=== PATIENT | male | born 1980 | race Caucasian/White ===

== ENCOUNTER 2018-10-07 11:02 | Emergency (ER) | payer OTHER, SELFPAY ==
[2018-10-07 11:04] VITALS: BP 158/95; PULSE 113; RESP 24; TEMP 36.6; O2SAT 98
--- NOTE | 2018-10-07 11:15 | ED.PSYCH ---
HPI - Psych General Chief Complaint: Psychiatric Symptoms Stated Complaint: Psych Time Seen by Provider: 10/07/18 11:04 Source: patient and family Mode of arrival: ambulatory Limitations: no limitations History of Present Illness HPI Narrative: Patient is a 38-year-old male with history of bipolar presenting with his psychiatrist is in acute meagan. He says he has been feeling the meagan come on for about the last 3 weeks or so. He presented to his psychiatrist's office today, but was promptly brought to the emergency department for further evaluation. He does not want to go to [facility] but will go if that is what everyone wants him to do. He he slept for about 5 hours last night. He has made comments to his psychiatrist about grandiose ideas. He denies any suicidal or homicidal ideations. MD complaint: altered mental status Related Data Home Medications Medication Instructions Recorded Confirmed bupropion HCl [Wellbutrin SR] #0 12/11/16 lamotrigine [Lamictal] #0 12/11/16 Allergies Allergy/AdvReac Type Severity Reaction Status Date / Time No Known Drug Allergies Allergy Verified 10/07/18 11:29 Review of Systems Review of Systems ROS Unobtainable: Unobtainable due to mental condition [facility] Medical History Bipolar 1 disorder (Acute) Social History Smoking Status: Current every day smoker Social History Smoking Status: Current every day smoker Exam Initial Vital Signs Initial Vital Signs: Vital Signs Temperature 98 F 10/07/18 11:04 Pulse Rate 113 H 10/07/18 11:04 Respiratory Rate 24 10/07/18 11:04 Blood Pressure 158/95 H 10/07/18 11:04 Pulse Oximetry 98 10/07/18 11:04 GENERAL: [Well-appearing, well-nourished] and in [no acute] distress. HEENT: Head atraumatic,EOMI, pupils reactive, face symmetric, [moist] mucous membranes CARDIOVASCULAR: Regular rate and rhythm without murmurs, rubs or gallops. RESPIRATORY: Breath sounds equal bilaterally, no wheezes rales or rhonchi. ABDOMEN: Soft, nontender. Normoactive bowel sounds all 4 quadrants. No guarding or rebound. EXTREMITIES: Normal range of motion, no clubbing or edema. Neurovascularly intact NEUROLOGICAL: Alert and oriented x4 SKIN: Warm, dry, no laceration, no petechiae, no rashes or lesions. Psych Appearance: grossly normal Speech and Movement: pressured speech Mood: manic mood Affect: irritable affect Attitude: avoids eye contact Thought Process: flight of ideas, illogical, impoverished and loose association Thought Content: no homicidality and suicidality Judgment: poor Course Orders Ordered: Discontinued Medications Haloperidol (Haldol) 5 mg IM NOW ONE Stop: 10/07/18 11:29 Last Admin: 10/07/18 11:56 Dose: 5 mg Vital Signs - 8 hr 10/07/18 11:04 Temperature 98 F Pulse Rate 113 H Respiratory Rate 24 Blood Pressure 158/95 H Pulse Oximetry 98 MDM - Psych Lab Data Result diagrams: 10/07/18 11:58 10/07/18 11:58 Lab Results 10/07/18 10/07/18 10/07/18 Range/Units 11:39 11:58 11:58 WBC 10.6 (4.5-11.0) X10^3/uL RBC 4.96 (4.5-5.9) X10^6/uL Hgb 14.3 (13.5-17.5) g/dL Hct 43.1 (41-53) % MCV 86.9 (80-100) fL MCH 28.8 (26-34) PG MCHC 33.1 (30-36) % RDW 12.6 (11.6-14.8) % Plt Count 362 (150-400) X10^3/uL Neut % (Auto) 72.4 (50-75) % Lymph % (Auto) 19.4 L (25-40) % Ogle % (Auto) 7.1 (3-14) % Eos % (Auto) 0.7 L (2-4) % Baso % (Auto) 0.4 (0-2) % Neut # (Auto) 7700 H (2196-0135) /uL Lymph # (Auto) 2100 (0599-0611) /uL Ogle # (Auto) 800 (0-900) /uL Eos # (Auto) 100 (0-450) /uL Baso # (Auto) 0 (0-100) /uL Sodium (137-145) mmol/L Potassium (3.4-5.1) mmol/L Chloride (98-107) mmol/L Carbon Dioxide (22-32) mmol/L BUN (9-20) mg/dL Creatinine (0.66-1.25) mg/dL Estimated GFR (>60) mL/min BUN/Creatinine Ratio (6-22) Glucose (70-100) mg/dL Calcium (8.4-10.2) mg/dL Total Bilirubin (0.2-1.3) mg/dL AST (17-59) IU/L ALT (21-72) IU/L Alkaline Phosphatase (38-126) U/L Total Protein (6.3-8.2) g/dL Albumin (3.5-5.0) g/dL Globulin (1.7-4.1) g/dL Albumin/Globulin Ratio (1.0-2.8) TSH (0.47-4.68) uIU/mL Urine Opiates Screen Negative (Negative) Ur Oxycodone Screen Negative (Negative) Urine Methadone Screen Negative (Negative) Ur Barbiturates Screen Negative (Negative) U Tricyclic Antidepress Positive H (Negative) Ur Phencyclidine Scrn Positive H (Negative) Ur Amphetamines Screen Negative (Negative) U Methamphetamines Scrn Negative (Negative) Ur MDMA Scrn (Ecstasy) Negative (Negative) U Benzodiazepines Scrn Negative (Negative) [place] < 0.2 L (0.6-1.2) mmol/L Urine Cocaine Screen Negative (Negative) U Marijuana (THC) Screen Positive H (Negative) Ethyl Alcohol ( - 10) mg/dL 10/07/18 10/07/18 Range/Units 11:58 11:58 WBC (4.5-11.0) X10^3/uL RBC (4.5-5.9) X10^6/uL Hgb (13.5-17.5) g/dL Hct (41-53) % MCV (80-100) fL MCH (26-34) PG MCHC (30-36) % RDW (11.6-14.8) % Plt Count (150-400) X10^3/uL Neut % (Auto) (50-75) % Lymph % (Auto) (25-40) % Ogle % (Auto) (3-14) % Eos % (Auto) (2-4) % Baso % (Auto) (0-2) % Neut # (Auto) (3980-8290) /uL Lymph # (Auto) (4904-7519) /uL Ogle # (Auto) (0-900) /uL Eos # (Auto) (0-450) /uL Baso # (Auto) (0-100) /uL Sodium 140 (137-145) mmol/L Potassium 4.3 (3.4-5.1) mmol/L Chloride 103 (98-107) mmol/L Carbon Dioxide 27 (22-32) mmol/L BUN 13 (9-20) mg/dL Creatinine 1.00 (0.66-1.25) mg/dL Estimated GFR > 60.0 (>60) mL/min BUN/Creatinine Ratio 13.0 (6-22) Glucose 119 H (70-100) mg/dL Calcium 9.4 (8.4-10.2) mg/dL Total Bilirubin 0.3 (0.2-1.3) mg/dL AST 26 (17-59) IU/L ALT 21 (21-72) IU/L Alkaline Phosphatase 81 (38-126) U/L Total Protein 7.4 (6.3-8.2) g/dL Albumin 4.5 (3.5-5.0) g/dL Globulin 2.9 (1.7-4.1) g/dL Albumin/Globulin Ratio 1.6 (1.0-2.8) TSH 0.90 (0.47-4.68) uIU/mL Urine Opiates Screen (Negative) Ur Oxycodone Screen (Negative) Urine Methadone Screen (Negative) Ur Barbiturates Screen (Negative) U Tricyclic Antidepress (Negative) Ur Phencyclidine Scrn (Negative) Ur Amphetamines Screen (Negative) U Methamphetamines Scrn (Negative) Ur MDMA Scrn (Ecstasy) (Negative) U Benzodiazepines Scrn (Negative) [place] (0.6-1.2) mmol/L Urine Cocaine Screen (Negative) U Marijuana (THC) Screen (Negative) Ethyl Alcohol < 10 ( - 10) mg/dL Urine Dip Bedside Urine Glucose Negative Bedside Urine Bilirubin + 1 Bedside Urine Ketone +/- 5 Urine Specific [place] 1.030 Bedside Urine Occult Blood - Negative Bedside Urine pH 6.0 Bedside Urine Protein +/- 15 Bedside Urine Urobilinogen - Negative Bedside Urine Nitrite - Negative Bedside Urine Leukocytes - Negative Esterase MDM Narrative Medical decision making narrative: In my opinion patient is gravely disabled unable to care for himself and has extremely poor judgment. He has been manic for about a month and has been escalating. He has grandiose ideas it is my opinion that he needs hospitalized. At this time he is willing to go. He is not requiring restraint he has been cooperative. He is asked bleeding in the emergency department and required Haldol. This seems to have calmed him. Social work on case. Patient accepted to [facility] [place] Discharge Plan Departure Patient Disposition: Xfer Psychiatric Hosp Clinical Impression: Meagan Discharge Date/Time: 10/07/18 19:33 Interventions: ED Discharge Assessment Last Done: 10/07/18 19:32
--- NOTE | 2018-10-07 11:34 | ED_ITS ---
HPI - Psych General Chief Complaint: Psychiatric Symptoms Stated Complaint: Psych Time Seen by Provider: 10/07/18 11:04 Source: patient and family Mode of arrival: ambulatory Limitations: no limitations History of Present Illness HPI Narrative: Patient is a 38-year-old male with history of bipolar presenting with his psychiatrist is in acute meagan. He says he has been feeling the meagan come on for about the last 3 weeks or so. He presented to his psychiatrist's office today, but was promptly brought to the emergency department for further evaluation. He does not want to go to [facility] but will go if that is what everyone wants him to do. He he slept for about 5 hours last night. He has made comments to his psychiatrist about grandiose ideas. He denies any suicidal or homicidal ideations. MD complaint: altered mental status Related Data Home Medications Medication Instructions Recorded Confirmed bupropion HCl [Wellbutrin SR] #0 12/11/16 lamotrigine [Lamictal] #0 12/11/16 Allergies Allergy/AdvReac Type Severity Reaction Status Date / Time No Known Drug Allergies Allergy Verified 10/07/18 11:29 Review of Systems Review of Systems ROS Unobtainable: Unobtainable due to mental condition [facility] Medical History Bipolar 1 disorder (Acute) Social History Smoking Status: Current every day smoker Social History Smoking Status: Current every day smoker Exam Initial Vital Signs Initial Vital Signs: Vital Signs Temperature 98 F 10/07/18 11:04 Pulse Rate 113 H 10/07/18 11:04 Respiratory Rate 24 10/07/18 11:04 Blood Pressure 158/95 H 10/07/18 11:04 Pulse Oximetry 98 10/07/18 11:04 GENERAL: [Well-appearing, well-nourished] and in [no acute] distress. HEENT: Head atraumatic,EOMI, pupils reactive, face symmetric, [moist] mucous mem branes CARDIOVASCULAR: Regular rate and rhythm without murmurs, rubs or gallops. RESPIRATORY: Breath sounds equal bilaterally, no wheezes rales or rhonchi. ABDOMEN: Soft, nontender. Normoactive bowel sounds all 4 quadrants. No guarding or rebound. EXTREMITIES: Normal range of motion, no clubbing or edema. Neurovascularly intact NEUROLOGICAL: Alert and oriented x4 SKIN: Warm, dry, no laceration, no petechiae, no rashes or lesions. Psych Appearance: grossly normal Speech and Movement: pressured speech Mood: manic mood Affect: irritable affect Attitude: avoids eye contact Thought Process: flight of ideas, illogical, impoverished and loose association Thought Content: no homicidality and suicidality Judgment: poor Course Orders Ordered: Discontinued Medications Haloperidol (Haldol) 5 mg IM NOW ONE Stop: 10/07/18 11:29 Last Admin: 10/07/18 11:56 Dose: 5 mg Vital Signs - 8 hr 10/07/18 11:04 Temperature 98 F Pulse Rate 113 H Respiratory Rate 24 Blood Pressure 158/95 H Pulse Oximetry 98 MDM - Psych Lab Data Result diagrams: 10/07/18 11:58 10/07/18 11:58 Lab Results 10/07/18 10/07/18 10/07/18 Range/Units 11:39 11:58 11:58 WBC 10.6 (4.5-11.0) X10^3/uL RBC 4.96 (4.5-5.9) X10^6/uL Hgb 14.3 (13.5-17.5) g/dL Hct 43.1 (41-53) % MCV 86.9 (80-100) fL MCH 28.8 (26-34) PG MCHC 33.1 (30-36) % RDW 12.6 (11.6-14.8) % Plt Count 362 (150-400) X10^3/uL Neut % (Auto) 72.4 (50-75) % Lymph % (Auto) 19.4 L (25-40) % [place]uce % (Auto) 7.1 (3-14) % Eos % (Auto) 0.7 L (2-4) % Baso % (Auto) 0.4 (0-2) % Neut # (Auto) 7700 H (0806-3334) /uL Lymph # (Auto) 2100 (3198-1599) /uL Luce # (Auto) 800 (0-900) /uL Eos # (Auto) 100 (0-450) /uL Baso # (Auto) 0 (0-100) /uL Sodium (137-145) mmol/L Potassium (3.4-5.1) mmol/L Chloride (98-107) mmol/L Carbon Dioxide (22-32) mmol/L BUN (9-20) mg/dL Creatinine (0.66-1.25) mg/dL Estimated GFR (>60) mL/min BUN/Creatinine Ratio (6-22) Glucose (70-100) mg/dL Calcium (8.4-10.2) mg/dL Total Bilirubin (0.2-1.3) mg/dL AST (17-59) IU/L ALT (21-72) IU/L Alkaline Phosphatase (38-126) U/L Total Protein (6.3-8.2) g/dL Albumin (3.5-5.0) g/dL Globulin (1.7-4.1) g/dL Albumin/Globulin Ratio (1.0-2.8) TSH (0.47-4.68) uIU/mL Urine Opiates Screen Negative (Negative) Ur Oxycodone Screen Negative (Negative) Urine Methadone Screen Negative (Negative) Ur Barbiturates Screen Negative (Negative) U Tricyclic Antidepress Positive H (Negative) Ur Phencyclidine Scrn Positive H (Negative) Ur Amphetamines Screen Negative (Negative) U Methamphetamines Scrn Negative (Negative) Ur MDMA Scrn (Ecstasy) Negative (Negative) U Benzodiazepines Scrn Negative (Negative) [place] < 0.2 L (0.6-1.2) mmol/L Urine Cocaine Screen Negative (Negative) U Marijuana (THC) Screen Positive H (Negative) Ethyl Alcohol ( - 10) mg/dL 10/07/18 10/07/18 Range/Units 11:58 11:58 WBC (4.5-11.0) X10^3/uL RBC (4.5-5.9) X10^6/uL Hgb (13.5-17.5) g/dL Hct (41-53) % MCV (80-100) fL MCH (26-34) PG MCHC (30-36) % RDW (11.6-14.8) % Plt Count (150-400) X10^3/uL Neut % (Auto) (50-75) % Lymph % (Auto) (25-40) % [place] % (Auto) (3-14) % Eos % (Auto) (2-4) % Baso % (Auto) (0-2) % Neut # (Auto) (2387-1210) /uL Lymph # (Auto) (7287-6424) /uL [place]uce # (Auto) (0-900) /uL Eos # (Auto) (0-450) /uL Baso # (Auto) (0-100) /uL Sodium 140 (137-145) mmol/L Potassium 4.3 (3.4-5.1) mmol/L Chloride 103 (98-107) mmol/L Carbon Dioxide 27 (22-32) mmol/L BUN 13 (9-20) mg/dL Creatinine 1.00 (0.66-1.25) mg/dL Estimated GFR > 60.0 (>60) mL/min BUN/Creatinine Ratio 13.0 (6-22) Glucose 119 H (70-100) mg/dL Calcium 9.4 (8.4-10.2) mg/dL Total Bilirubin 0.3 (0.2-1.3) mg/dL AST 26 (17-59) IU/L ALT 21 (21-72) IU/L Alkaline Phosphatase 81 (38-126) U/L Total Protein 7.4 (6.3-8.2) g/dL Albumin 4.5 (3.5-5.0) g/dL Globulin 2.9 (1.7-4.1) g/dL Albumin/Globulin Ratio 1.6 (1.0-2.8) TSH 0.90 (0.47-4.68) uIU/mL Urine Opiates Screen (Negative) Ur Oxycodone Screen (Negative) Urine Methadone Screen (Negative) Ur Barbiturates Screen (Negative) U Tricyclic Antidepress (Negative) Ur Phencyclidine Scrn (Negative) Ur Amphetamines Screen (Negative) U Methamphetamines Scrn (Negative) Ur MDMA Scrn (Ecstasy) (Negative) U Benzodiazepines Scrn (Negative) [place] (0.6-1.2) mmol/L Urine Cocaine Screen (Negative) U Marijuana (THC) Screen (Negative) Ethyl Alcohol < 10 ( - 10) mg/dL Urine Dip Bedside Urine Glucose Negative Bedside Urine Bilirubin + 1 Bedside Urine Ketone +/- 5 Urine Specific [place] 1.030 Bedside Urine Occult Blood - Negative Bedside Urine pH 6.0 Bedside Urine Protein +/- 15 Bedside Urine Urobilinogen - Negative Bedside Urine Nitrite - Negative Bedside Urine Leukocytes - Negative Esterase MDM Narrative Medical decision making narrative: In my opinion patient is gravely disabled unable to care for himself and has extremely poor judgment. He has been manic for about a month and has been escalating. He has grandiose ideas it is my opinion that he needs hospitalized. At this time he is willing to go. He is not requiring restraint he has been cooperative. He is asked bleeding in the emergency department and required Haldol. This seems to have calmed him. Social work on case. Patient accepted to [facility] [place] Discharge Plan Departure Patient Disposition: [facility] Clinical Impression: Meagan Discharge Date/Time: 10/07/18 19:33 Interventions: ED Discharge Assessment Last Done: 10/07/18 19:32
--- NOTE | 2018-10-07 11:34 | PC.NURSE ---
denies such accusations, she remains at bs. pt drinking coffee.
--- NOTE | 2018-10-07 11:50 | PC.NURSE ---
Patient was calling out to his while she was walking away. he has talked about running past us to go outside and smoke.
[2018-10-07] MEDS: HALOPERIDOL 5 MG/ML VIAL IM (11:56)
[2018-10-07 12:01] LABS: Urine Amphetamines Negative (Negative); Urine Barbiturates Negative (Negative); Urine Benzodiazepines Negative (Negative); Urine Cocaine Negative (Negative); Urine MDMA Negative (Negative); Urine Methadone Negative (Negative); Urine Methamphetamines Negative (Negative); Urine Morphine/Opi cutoff 2000 Negative (Negative); Urine Phencyclidine Positive (Negative); Urine Tetrahydrocannabinol Positive (Negative); Urine Tricyclic Antidepressant Positive (Negative)
[2018-10-07 12:02] LABS: Urine Oxycodone Negative (Negative)
[2018-10-07 12:16] LABS: Add Manual Diff / Slide Review NO; Basophils Absolute Auto 0 /uL (0-100); Basophils Percent Auto 0.4 % (0-2); Eosinophils Absolute Auto 100 /uL (0-450); Eosinophils Percent Auto 0.7 % (2-4); Hematocrit 43.1 % (41-53); Hemoglobin 14.3 g/dL (13.5-17.5); Lymphocytes Absolute Auto 2100 /uL (1100-4500); Lymphocytes Percent Auto 19.4 % (25-40); Mean Corpuscular HGB Conc 33.1 % (30-36); Mean Corpuscular Hemoglobin 28.8 PG (26-34); Mean Corpuscular Volume 86.9 fL (80-100); Monocytes Absolute Auto 800 /uL (0-900); Monocytes Percent Auto 7.1 % (3-14); Neutrophils Absolute Auto 7700 /uL (1500-7000); Neutrophils Percent Auto 72.4 % (50-75); Platelet Count 362 X10^3/uL (150-400); Red Blood Cell Count 4.96 X10^6/uL (4.5-5.9); Red Cell Distribution Width 12.6 % (11.6-14.8); White Blood Cell Count 10.6 X10^3/uL (4.5-11.0)
[2018-10-07 12:35] LABS: Lithium < 0.2 mmol/L (0.6-1.2)
[2018-10-07 12:36] LABS: Alanine Aminotransferase 21 IU/L (21-72); Albumin 4.5 g/dL (3.5-5.0); Albumin Globulin Ratio 1.6 (1.0-2.8); Alkaline Phosphatase 81 U/L (38-126); Aspartate Aminotransferase 26 IU/L (17-59); Bilirubin Total 0.3 mg/dL (0.2-1.3); Blood Urea Nitrogen 13 mg/dL (9-20); Calcium 9.4 mg/dL (8.4-10.2); Carbon Dioxide 27 mmol/L (22-32); Chloride 103 mmol/L (98-107); Estimated Glomerular Filt Rate > 60.0 mL/min (>60); Ethanol (ETOH) < 10 mg/dL; Globulin 2.9 g/dL (1.7-4.1); Glucose 119 mg/dL (70-100); HEMOLYSIS < 15 (0-50); Potassium 4.3 mmol/L (3.4-5.1); Sodium 140 mmol/L (137-145); Total Protein 7.4 g/dL (6.3-8.2)
--- NOTE | 2018-10-07 13:42 | PC.NURSE ---
morteza here to speak with pt and
[2018-10-07 16:29] VITALS: BP 117/72; PULSE 81; RESP 18; TEMP 36.8; O2SAT 98
--- NOTE | 2018-10-07 16:41 | CM.SWNOTE ---
AUDIO RECORDING ENGINEER Note: (See Crisis Response Assessment for additional details). Patient is a 38yr old male brought in to [facility] today by his spouse/Aura and VERNON/Nj. Family reports that patient was at counselor's today and family were told to bring him to Emergency Department for MH assistance. History: Patient with h/o Bipolar I disorder. Patient reports that he has been off/on medications for Bipolar for many years but actually only diagnosed 3yrs ago. Patient reports both voluntary and involuntary placements in the past. Patient denies current suicidal or homicidal ideation. Support: Patient actively has counselor whom he sees in [place] (Bhargav). Patient has not seen a psychiatrist in unknown amount of time? Patient reports that he gets all psychotropic medications from Dr. Allen. Patient admits to not always taking them. Patient resides with spouse, 5month old, and in-laws in [place]. Patient employed at local restaurant. Family at bedside and appear very engaged. Family requesting help with patient's current manic episode(s). Current: Met with patient explained AUDIO RECORDING ENGINEER role. Patient recently given haldol for restlessness. Patient appears alert and oriented during interview. Patient prefers that his spouse and VERNON stay in the room. Patient admits to long psychiatric history. Patient's speech very fast and repetitive. Patient's appearance is unkept. Patient makes good eye contact during interview but appears to have excessive thoughts i.e. patient's belief is that mushrooms will help his bipolar disorder. Patient very willing to disagree with AUDIO RECORDING ENGINEER on what might be helpful to him moving forward. It was suggested that patient stop all hallucinogens. Patient reports that he is at [facility] because he told his family he would do what they say re: help for bipolar. Patient does not identify that he has substance abuse issue. Patient agreeable to go voluntarily to inpatient MH facility to obtain medication stabilization. Spoke with Dr. Mulligan and she feels strongly that patient is at high risk of harm to himself in current manic state. Patient's brother committed suicide in April 2018. Family in agreement. AUDIO RECORDING ENGINEER placed call to [facility]. They report 1 male bed. Faxed clinical to [facility] for review. No call back as of 4:00pm today. ED staff instructed to check in with [facility] around 6:00pm. If they do not accept. Will need to reassess for placement or secondary plan in AM. Family decided to go home for short amount of time to check on child and take break. Spouse/Crystal would like update if patient goes anywhere this evening # [phone]. VERNON/Nj can be reached at [phone]. Prior to family's departure patient became agitated, specifically with spouse on why he needed to go to facility. Patient reports he would prefer to return home. However, given unstable state this does not appear to be safest plan. However, may belt changer the next 24hrs. Dr. Mulligan aware to dispatch [facility] if behavior becomes worrisome. P: Pending. Would attempt voluntary placement for unstable psychiatric condition. Patient currently at high risk to self/others. MARTINEZ Hilliard
--- NOTE | 2018-10-07 18:13 | PC.NURSE ---
accepted at [facility]/ making transport plans with ambulance. father in law in waiting aware.
[2018-10-07 18:46] VITALS: BP 122/78; PULSE 75; RESP 20; O2SAT 97
--- NOTE | 2018-10-07 18:48 | PC.NURSE ---
We gave the patient a dinner tray, updated his vital signs, and had him sign transfer consent. He was not happy about having to take an ambulance (states we have a broken system), but he did cooperate to sign all paperwork.
== END 2018-10-07 19:33 ==
PROVIDERS: Emergency Provider Emergency Medicine
DX: F30.9 Manic episode, unspecified (principal)
CPT/HCPCS: 36415; 80053; 80178; 80305; 80320; 81003; 84443; 85025; 96372; 99283; 99284; J1630

== ENCOUNTER → 2018-12-04 09:50 | Outpatient (CLI) | payer OTHER, SELFPAY ==
[2018-12-04 12:48] LABS: BUN Creatinine Ratio 13.6 (6-22); Blood Urea Nitrogen 15 mg/dL (9-20); Calcium 10.2 mg/dL (8.4-10.2); Carbon Dioxide 31 mmol/L (22-32); Chloride 100 mmol/L (98-107); Estimated Glomerular Filt Rate > 60.0 mL/min (>60); Glucose 86 mg/dL (70-100); HEMOLYSIS < 15 (0-50); Sodium 139 mmol/L (137-145)
[2018-12-04 12:52] LABS: Lithium < 0.2 mmol/L (0.6-1.2); Potassium 5.6 mmol/L (3.4-5.1)
== END ==
PROVIDERS: Visit Provider Psychiatry & Neurology Psychiatry
DX: F31.13 Bipolar disorder, current episode manic without psychotic features, severe (principal)
CPT/HCPCS: 36415; 80048; 80178

== ENCOUNTER → 2019-01-19 08:44 | Outpatient (CLI) | payer OTHER, SELFPAY ==
[2019-01-19 10:16] LABS: Lithium < 0.2 mmol/L (0.6-1.2)
[2019-01-19 10:18] LABS: Blood Urea Nitrogen 15 mg/dL (9-20); Calcium 9.8 mg/dL (8.4-10.2); Carbon Dioxide 27 mmol/L (22-32); Chloride 102 mmol/L (98-107); Estimated Glomerular Filt Rate > 60.0 mL/min (>60); Glucose 79 mg/dL (70-100); HEMOLYSIS < 15 (0-50); Potassium 4.5 mmol/L (3.4-5.1); Sodium 139 mmol/L (137-145)
[2019-01-22 15:31] LABS: Lamotrigine Lamictal 2.6 mcg/mL (4.0-18.0)
== END ==
PROVIDERS: Visit Provider Psychiatry & Neurology Psychiatry
DX: F31.13 Bipolar disorder, current episode manic without psychotic features, severe (principal)
CPT/HCPCS: 36415; 80048; 80175; 80178

== ENCOUNTER → 2019-02-22 14:49 | Outpatient (CLI) | payer OTHER, SELFPAY ==
[2019-02-22 16:38] LABS: Lithium 0.2 mmol/L (0.6-1.2)
[2019-02-22 16:41] LABS: BUN Creatinine Ratio 12.7 (6-22); Blood Urea Nitrogen 14 mg/dL (9-20); Calcium 10.4 mg/dL (8.4-10.2); Carbon Dioxide 30 mmol/L (22-32); Chloride 99 mmol/L (98-107); Estimated Glomerular Filt Rate > 60.0 mL/min (>60); Glucose 90 mg/dL (70-100); HEMOLYSIS < 15 (0-50); Potassium 5.3 mmol/L (3.4-5.1); Sodium 140 mmol/L (137-145)
== END ==
PROVIDERS: PCP Family Medicine; Visit Provider Psychiatry & Neurology Psychiatry
DX: F31.13 Bipolar disorder, current episode manic without psychotic features, severe (principal)
CPT/HCPCS: 36415; 80048; 80178

== ENCOUNTER → 2019-04-16 15:36 | Outpatient (CLI) | payer OTHER, SELFPAY ==
[2019-04-16 16:45] LABS: Lithium 0.2 mmol/L (0.6-1.2)
[2019-04-16 16:48] LABS: Blood Urea Nitrogen 12 mg/dL (9-20); Calcium 9.8 mg/dL (8.4-10.2); Carbon Dioxide 29 mmol/L (22-32); Chloride 102 mmol/L (98-107); Estimated Glomerular Filt Rate > 60.0 mL/min (>60); Glucose 151 mg/dL (70-100); HEMOLYSIS < 15 (0-50); Potassium 4.3 mmol/L (3.4-5.1); Sodium 140 mmol/L (137-145)
[2019-04-19 09:12] LABS: Lamotrigine Lamictal 2.1 mcg/mL (4.0-18.0)
== END ==
PROVIDERS: PCP Family Medicine; Referring Provider Psychiatry & Neurology Psychiatry; Visit Provider Psychiatry & Neurology Psychiatry
DX: F31.13 Bipolar disorder, current episode manic without psychotic features, severe (principal)
CPT/HCPCS: 36415; 80048; 80175; 80178

== ENCOUNTER → 2019-11-23 14:41 | Outpatient (CLI) | payer OTHER, SELFPAY ==
[2019-11-23 18:52] LABS: BUN Creatinine Ratio 10.3 (6-22); Blood Urea Nitrogen 12 mg/dL (9-20); Calcium 9.7 mg/dL (8.4-10.2); Carbon Dioxide 31 mmol/L (22-32); Chloride 100 mmol/L (98-107); Estimated Glomerular Filt Rate > 60.0 mL/min (>60); Glucose 90 mg/dL (70-100); HEMOLYSIS < 15 (0-50); Potassium 4.7 mmol/L (3.4-5.1); Sodium 138 mmol/L (137-145)
[2019-11-23 19:17] LABS: Lithium 0.2 mmol/L (0.6-1.2)
[2019-11-26 13:09] LABS: Lamotrigine Lamictal 2.7 ug/mL (2.0-20.0)
== END ==
PROVIDERS: PCP Family Medicine; Referring Provider Psychiatry & Neurology Psychiatry; Visit Provider Psychiatry & Neurology Psychiatry
DX: F31.13 Bipolar disorder, current episode manic without psychotic features, severe (principal)
CPT/HCPCS: 36415; 80048; 80175; 80178

== ENCOUNTER → 2020-04-21 11:27 | Outpatient (CLI) | payer OTHER, SELFPAY ==
[2020-04-21 12:35] LABS: Lithium 0.3 mmol/L (0.6-1.2)
== END ==
PROVIDERS: PCP Family Medicine; Referring Provider Family Medicine; Visit Provider Psychiatry & Neurology Psychiatry
DX: F31.13 Bipolar disorder, current episode manic without psychotic features, severe (principal)
CPT/HCPCS: 36415; 80175; 80178

== ENCOUNTER → 2020-05-01 09:41 | Outpatient (CLI) | payer OTHER, SELFPAY ==
[2020-05-01] MEDS: COVID-19 VACC #1, MRNA(MOD) 100 MCG/0.5 ML VIAL IM (09:48)
== END ==
PROVIDERS: PCP Family Medicine; Visit Provider Internal Medicine
DX: Z23 Encounter for immunization (principal)
CPT/HCPCS: 0011A; 91301

== ENCOUNTER → 2020-05-29 08:44 | Outpatient (CLI) | payer OTHER, SELFPAY ==
[2020-05-29] MEDS: COVID-19 VACC #2, MRNA(MOD) 100 MCG/0.5 ML VIAL IM (08:51)
== END ==
PROVIDERS: PCP Family Medicine; Visit Provider Internal Medicine
DX: Z23 Encounter for immunization (principal)
CPT/HCPCS: 0012A; 91301

== ENCOUNTER → 2022-03-15 14:35 | Outpatient (CLI) | payer OTHER, SELFPAY ==
[2022-03-15 15:40] LABS: Alanine Aminotransferase 21 IU/L (<50); Albumin 4.3 g/dL (3.5-5.0); Albumin Globulin Ratio 1.7 (1.0-2.8); Alkaline Phosphatase 80 U/L (38-126); Aspartate Aminotransferase 21 IU/L (17-59); BUN Creatinine Ratio 12.4 (6-22); Bilirubin Total 0.3 mg/dL (0.2-1.3); Blood Urea Nitrogen 13 mg/dL (9-20); Calcium 9.4 mg/dL (8.4-10.2); Carbon Dioxide 27 mmol/L (22-32); Chloride 101 mmol/L (98-107); Estimated Glomerular Filt Rate > 60 mL/min (>60); Globulin 2.6 g/dL (1.7-4.1); Glucose 103 mg/dL (70-100); HEMOLYSIS < 15 (0-50); Lithium 0.3 mmol/L (0.6-1.2); Potassium 4.4 mmol/L (3.4-5.1); Sodium 137 mmol/L (137-145); Total Protein 6.9 g/dL (6.3-8.2)
[2022-03-18 15:15] LABS: Lamotrigine Lamictal 2.3 ug/mL (2.0-20.0)
== END ==
PROVIDERS: PCP Family Medicine; Referring Provider Psychiatry & Neurology Psychiatry; Visit Provider Psychiatry & Neurology Psychiatry
DX: F31.13 Bipolar disorder, current episode manic without psychotic features, severe (principal)
CPT/HCPCS: 36415; 80053; 80175; 80178

== ENCOUNTER → 2023-03-21 09:18 | Outpatient (CLI) | payer OTHER, SELFPAY ==
[2023-03-21 11:49] LABS: Alanine Aminotransferase 27 IU/L (<50); Albumin 4.6 g/dL (3.5-5.0); Albumin Globulin Ratio 1.3 (1.0-2.8); Alkaline Phosphatase 74 U/L (38-126); Aspartate Aminotransferase 25 IU/L (17-59); BUN Creatinine Ratio 11.8 (6-22); Bilirubin Total 0.6 mg/dL (0.2-1.3); Blood Urea Nitrogen 14 mg/dL (9-20); Calcium 10.2 mg/dL (8.4-10.2); Carbon Dioxide 31 mmol/L (22-32); Chloride 103 mmol/L (98-107); Estimated Glomerular Filt Rate > 60 mL/min (>60); Globulin 3.5 g/dL (1.7-4.1); Glucose 101 mg/dL (70-100); HEMOLYSIS < 15 (0-50); Sodium 138 mmol/L (137-145); Total Protein 8.1 g/dL (6.3-8.2)
[2023-03-21 11:50] LABS: Lithium 0.5 mmol/L (0.6-1.2)
[2023-03-24 06:18] LABS: Lamotrigine Lamictal 3.9 ug/mL (2.0-20.0)
== END ==
PROVIDERS: PCP Family Medicine; Referring Provider Psychiatry & Neurology Psychiatry; Visit Provider Psychiatry & Neurology Psychiatry
DX: F31.13 Bipolar disorder, current episode manic without psychotic features, severe (principal); Z79.899 Other long term (current) drug therapy
CPT/HCPCS: 36415; 80053; 80175; 80178

== ENCOUNTER → 2023-07-28 08:56 | Outpatient (CLI) | payer OTHER, SELFPAY ==
[2023-07-28 10:38] LABS: Lithium 0.6 mmol/L (0.6-1.2)
== END ==
PROVIDERS: PCP Family Medicine; Referring Provider Psychiatry & Neurology Psychiatry; Visit Provider Psychiatry & Neurology Psychiatry
DX: F31.13 Bipolar disorder, current episode manic without psychotic features, severe (principal); Z79.899 Other long term (current) drug therapy
CPT/HCPCS: 36415; 80178

== ENCOUNTER → 2024-01-16 10:38 | Outpatient (CLI) | payer OTHER, SELFPAY ==
[2024-01-16 11:51] LABS: Lithium 0.5 mmol/L (0.6-1.2)
== END ==
PROVIDERS: PCP Family Medicine; Referring Provider Psychiatry & Neurology Psychiatry; Visit Provider Psychiatry & Neurology Psychiatry
DX: Z79.899 Other long term (current) drug therapy (principal)
CPT/HCPCS: 36415; 80178

== ENCOUNTER → 2024-10-22 09:21 | Outpatient (CLI) | payer OTHER, SELFPAY ==
[2024-10-22 09:54] LABS: Add Manual Diff / Slide Review NO; Hematocrit 43.1 % (41-53); Hemoglobin 14.7 g/dL (13.5-17.5); Lymphocytes Absolute Auto 2000 /uL (1100-4500); Mean Corpuscular HGB Conc 34.0 % (30-36); Mean Corpuscular Hemoglobin 29.3 PG (26-34); Mean Corpuscular Volume 86.0 fL (80-100); Platelet Count 374 X10^3/uL (150-400)
[2024-10-22 10:24] LABS: Alanine Aminotransferase 21 IU/L (<50); Albumin 4.4 g/dL (3.5-5.0); Albumin Globulin Ratio 1.7 (1.0-2.8); Alkaline Phosphatase 76 U/L (38-126); Blood Urea Nitrogen 14 mg/dL (9-20); Calcium 9.2 mg/dL (8.4-10.2); Carbon Dioxide 24 mmol/L (22-32); Chloride 103 mmol/L (98-107); Estimated Glomerular Filt Rate > 60 mL/min (>60); Globulin 2.6 g/dL (1.7-4.1); Glucose 90 mg/dL (70-99); HEMOLYSIS < 15 (0-50); Potassium 4.6 mmol/L (3.4-5.1); Sodium 137 mmol/L (137-145); Total Protein 7.0 g/dL (6.3-8.2)
[2024-10-22 10:28] LABS: Lithium 0.5 mmol/L (0.6-1.2)
[2024-10-22 10:58] LABS: TSH w/ Reflex to FT4 1.35 uIU/mL (0.47-4.68)
[2024-10-24 07:09] LABS: Lamotrigine Lamictal 3.5 ug/mL (2.0-20.0)
== END ==
PROVIDERS: PCP Family Medicine; Referring Provider Family Medicine; Visit Provider Psychiatry & Neurology Psychiatry
DX: F31.13 Bipolar disorder, current episode manic without psychotic features, severe (principal); Z79.899 Other long term (current) drug therapy
CPT/HCPCS: 36415; 80053; 80175; 80178; 84443; 85025